=== PATIENT | male | born 1990 | race Caucasian/White ===

== ENCOUNTER → 2017-10-31 | Outpatient (CLI) | payer OTHER ==
[~2017-10-31] MED LIST: INCARCERATION; NAPR375 PO; NAPR500 PO; TRIA80TC TOP; TYLENOL PM
== END | disposition home or self-care (01) ==
LOC: LAB 17:37 → LAB SHORT 17:37
DX: M54.9 Dorsalgia, unspecified (principal); R53.83 Other fatigue
CPT/HCPCS: 81374; 86038; 86141